=== PATIENT | male | born 1975 | race Hispanic/Latino ===

== ENCOUNTER 2021-11-09 13:09 | Emergency (ER) | payer SELFPAY ==
[~2021-11-09] VITALS: Ht 175.3 cm; Wt 85.0 kg
[~2021-11-09 13:09] MED LIST: CORTISPORIN OTI10 ML AS; [UNRECOGNIZED DRUG - REMARK]
[2021-11-09 14:06] VITALS: BP 137/90
[2021-11-09 14:44] LABS: HEMATOCRIT 43.1 % (39.0-50.0); HEMOGLOBIN 14.4 g/dl (14.0-18.0); IMMATURE GRANULOCYTES 0.3 % (0.0-5.0); MEAN CELL VOLUME 89.8 fL CALC (80.0-100.0); MEAN CORPUSCULAR HGB CONC 33.4 g/dL CAL (32.0-36.0); NEUT# 5.27 thou/uL (1.82-7.42); RED BLOOD COUNT 4.8 mill/uL (4.70-6.10); RED CELL DISTRI WIDTH 13.2 % (11.5-15.5)
[2021-11-09 15:00] VITALS: BP 130/89
[2021-11-09 15:05] LABS: ALBUMIN 3.8 g/dL (3.2-5.0); ALKALINE PHOSPHATASE 209 u/l (38-126); ANION GAP 12 (6-22 (CALC)); BILIRUBIN, TOTAL 0.8 mg/dL (0.0-1.4); BUN 9 mg/dL (9-20); BUN/CREATININE RATIO 8 (12-20 (CALC)); CARBON DIOXIDE 28 mmol/l (22-30); CHLORIDE 98 mmol/l (95-108); CREATININE 1.2 mg/dL (0.7-1.3); GFR FOR AFR.AMER. > 60 ML/MIN (>=60 (CALC)); GFR OTHER RACES > 60 ML/MIN (>=60 (CALC)); LIPASE 720 u/l (23-300); POTASSIUM 3.7 mmol/l (3.5-5.1); SGOT/AST 175 u/l (17-59); SODIUM 135 mmol/l (137-146); TOTAL PROTEIN 7.2 g/dL (6.3-8.2)
[2021-11-09] MEDS ORDERED: ZOFRAN4 MG/TAB PO (16:44)
[2021-11-09] MEDS ORDERED: ULTRAM50 MG PO (16:44)
== END 2021-11-09 17:01 | disposition home or self-care (01) | DRG 440 ==
LOC: ED 13:09
DX: K85.90 Acute pancreatitis without necrosis or infection, unspecified (principal); R74.8 Abnormal levels of other serum enzymes; Z20.822 Contact with and (suspected) exposure to COVID-19
CPT/HCPCS: Q9967